=== PATIENT | female | born 1940 | race Caucasian/White ===

== ENCOUNTER → 2017-06-09 | Outpatient (CLI) | payer MEDICARE | END | disposition home or self-care (01) | LOC: CFH 12:38 | PROVIDERS: ATTEND Physical Medicine & Rehabilitation | DX: M51.36 Other intervertebral disc degeneration, lumbar region (principal); M48.07 Spinal stenosis, lumbosacral region; M48.06 Spinal stenosis, lumbar region; M41.86 Other forms of scoliosis, lumbar region; M47.897 Other spondylosis, lumbosacral region; M47.896 Other spondylosis, lumbar region | CPT/HCPCS: 72148 ==